=== PATIENT | female | born 1930 | race Caucasian/White ===

== ENCOUNTER → 2016-06-01 | Outpatient (CLI) | payer OTHER, BC ==
[~2016-06-01] MED LIST: ACET300T2 PO; ACET325T95 PO; ALBU1AER9 INH; ASPI81TA28 PO; BISA10SU13 PR; CLOP1TAB15 PO; CYAN10005 PO; Enteral Nutrition Formula PO; GABA-112 PO; GABA1CAP5 PO; LEVO25TA PO; LPT/40 PO; METO25TA3 PO; MIDO2.5T PO; NITR0.4S UT; ONDA8TAB6 PO; PANT40TA PO; SENN-65 PO; SODIENE PR; SYMIN160 INH; TYL325X PO
--- NOTE | 2016-06-01 11:16 | DIAGNOSTIC IMAGING REPORT ---
THYROID ULTRASONOGRAPHY CLINICAL HISTORY: Neck swelling COMPARISON STUDY: No previous studies for comparison. FINDINGS: The right the thyroid measures 31 x 9 x 10 mm. There is a 2 mm right lobe thyroid nodule. The left lobe measures 63 x 39 x 46 mm. There is a hypoechoic irregular 15 x 7 x 12 mm mid pole nodule. There is a relatively isoechoic mildly lobulated 51 x 32 x 47 mm lower pole nodule. Both lobes of thyroid are heterogeneous in echotexture. IMPRESSION: Heterogeneous thyroid. There are 2 dominant left lobe nodules, for which fine-needle aspiration biopsy should be considered in follow-up. Electronically signed by: Rachid Copeland M.D. 06/01/2016 11:14 AM Dictated Date/Time: 06/01/2016 11:12 AM
== END | disposition home or self-care (01) ==
LOC: C.ULTR 10:26
PROVIDERS: ATTEND Physician Assistant Medical
DX: E04.1 Nontoxic single thyroid nodule (principal)

== ENCOUNTER → 2016-06-15 | Outpatient (CLI) | payer OTHER, BC ==
--- NOTE | 2016-06-15 13:57 | Discharge Instructions ---
Discharge Instructions Procedure Procedure Date: June 15, 2016. Reason for visit: Swelling/Mass On Neck. Discharge Discharge Date: June 15, 2016. Discharge Diagnosis: s/p thyroid FNA Instructions Activity Recommendations: No limitations Return to School/Work: no limitations Provider Instructions: ACTIVITY RECOMMENDATIONS: * Rest today. * Resume regular activity in one day. MEDICATIONS: * May take Tylenol or Ibuprofen as needed for pain. DIET: * Resume previous diet. SPECIAL CARE INSTRUCTIONS: Call your doctor if: * Temperature above 101 degrees F. * Pain not relieved by pain medicine ordered. * Increased drainage or redness from incision. * Notify your doctor with any questions or concerns. Call your doctor or go to the nearest Emergency Department if you experience: * Increased chest pain or shortness of breath. FOLLOW UP VISIT: Follow-up with Referring Physician as scheduled. Allergies Coded Allergies: Fentanyl (Verified Allergy, Severe, "tongue and throat swelling", 11/24/14 ) Morphine (Verified Allergy, Severe, STOPPED BREATHING, 11/24/14) Chlorhexidine (Verified Allergy, Mild, RASH, 11/04/14) Grass (Verified Allergy, Unknown, "seasonal allergy" = "runny nose,itchy throat", 11/04/14) [place] Recommendations: Call your doctor if: * Temperature above 101 degrees * Pain not relieved by pain medicine ordered * There is increased drainage or redness from any incision * You have any unanswered questions or concerns. Your Doctors Instructions noted above were prepared by provider Timmy Green. Patient Signature Section: Patient Instructions Signature Page Imani Moreno Patient (or Guardian) Signature/Date: I have read and understand the instructions given to me by my caregivers. Caregiver/RN/Doctor Signature/Date: The above-named patient and/or guardian has received patient instructions on this date. + Original Patient Signature Page (only) stays with chart. Please make copy for patient.
--- NOTE | 2016-06-15 14:31 | DIAGNOSTIC IMAGING REPORT ---
ULTRASOUND GUIDED FINE NEEDLE ASPIRATION OF LEFT LOBE THYROID NODULES CLINICAL HISTORY: Lump in neck. COMPARISON STUDY: Thyroid ultrasound June 01, 2016. PROCEDURE: Sonography of the thyroid gland demonstrated the 1.5 cm hypoechoic left mid pole nodule and the 5.1 cm isoechoic lower pole nodule. These 2 nodules were targeted for fine needle aspiration. The procedure, risks and benefits discussed the patient including the risk of bleeding, infection and injury to adjacent structures. The patient agreed to the procedure and informed consent was obtained. The procedure was performed by Dr. Green following a timeout. Skin of the left neck was prepped and draped in sterile fashion and local anesthesia was achieved with 1% lidocaine. Under direct ultrasound guidance, 4 25-gauge fine needle aspirations of the 1.5 cm left mid pole nodule were performed. Minimal cellularity was noted. 2 25-gauge fine needle aspirations of the left lower pole nodule were performed. IMPRESSION: Ultrasound guided fine needle aspiration of the 1.5 cm left mid pole nodule and the 5.1 cm left lower pole nodule. Electronically signed by: Timmy Green M.D. 06/15/2016 2:29 PM Dictated Date/Time: 06/15/2016 2:26 PM
== END ==
LOC: C.ULTR 12:53
PROVIDERS: ATTEND Physician Assistant Medical
DX: R22.1 Localized swelling, mass and lump, neck (principal)

== ENCOUNTER → 2016-09-10 | Outpatient (CLI) | payer OTHER, BC ==
--- NOTE | 2016-09-10 13:59 | DIAGNOSTIC IMAGING REPORT ---
CT SCAN OF THE ABDOMEN AND PELVIS WITHOUT CONTRAST CLINICAL HISTORY: Right upper quadrant abdominal pain. Abnormal ultrasound. COMPARISON STUDY: CT scan dated 11/24/2014 TECHNIQUE: CT scan of the abdomen and pelvis was performed from the lung bases to the proximal femurs. Images are reviewed in the axial, sagittal, and coronal planes. IV contrast was not administered for this examination. A dose lowering technique was utilized adhering to the principles of ALARA. CT DOSE: 312.12 mGy.cm FINDINGS: Lower chest: There are coronary artery calcifications. There is a large hiatal hernia. Liver: No space-occupying hepatic masses are visualized on this noncontrast study. Gallbladder: Surgically absent Spleen: Normal in size and attenuation. Pancreas: Unremarkable. Adrenal glands: Unremarkable. Kidneys: Left kidney appears atrophic. There is no hydronephrosis. No renal calculi are visualized. Bowel: There are no transition zones indicate bowel obstruction. There is colonic diverticulosis. There are no acute peridiverticular inflammatory changes. By history the appendix is surgically absent Peritoneum: There is no intraperitoneal free air or abdominal ascites. There is a fat-containing left inguinal hernia. Vasculature: There is a small saccular aneurysm arising from the infrarenal abdominal aortic measuring 14 mm. This remain stable. Adenopathy: None. Pelvic viscera: The uterus is surgically absent. There is an indwelling Mcclure catheter. Skeletal structures: No destructive osseous lesions are seen. IMPRESSION: 1. No acute intra-abdominal or pelvic findings 2. No evidence of bowel obstruction. No evidence of free air 3. Diverticulosis. No evidence of acute diverticulitis 4. Large hiatal hernia. Small fat-containing left inguinal hernia 5. Stable small saccular infrarenal abdominal aortic aneurysm Electronically signed by: Rachid Copeland M.D. 09/10/2016 1:57 PM Dictated Date/Time: 09/10/2016 1:51 PM
== END ==
LOC: C.CTS 13:38
PROVIDERS: ATTEND Internal Medicine
DX: K57.90 Diverticulosis of intestine, part unspecified, without perforation or abscess without bleeding (principal); K44.9 Diaphragmatic hernia without obstruction or gangrene

== ENCOUNTER → 2016-11-02 | Outpatient (CLI) | payer OTHER, BC ==
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
== END | disposition home or self-care (01) ==
LOC: C.MRI 13:59
PROVIDERS: ATTEND Internal Medicine
DX: R93.8 Abnormal findings on diagnostic imaging of other specified body structures (principal); M40.202 Unspecified kyphosis, cervical region; M48.02 Spinal stenosis, cervical region